=== PATIENT | male | born 1965 | race Caucasian/White ===

== ENCOUNTER 2021-11-13 08:52 | Emergency (ER) | payer MEDICAID ==
[~2021-11-13] VITALS: Ht 177.8 cm; Wt 51.3 kg
--- NOTE | 2021-11-13 08:57 | NUR ---
TO ER BED 6, [id number] C/O SOB 92% RA PER EMS REPORT, WAS JUST DISCHARGED FROM [facility] 2DAYS AGO, CONNECTED ON OXYGEN 5LPM SATTING AT 97-100%, AAOX3, CONNECTED TO MONITOR, AWAITING MD ORDERS
[2021-11-13] MEDS ORDERED: methylPREDNISolone SOD SUCC 125 MG/2ML VIAL ONE (09:17)
--- NOTE | 2021-11-13 09:26 | NUR ---
FRAME MAKER AT BEDSIDE FOR XRAY
[2021-11-13] MEDS ORDERED: ALBUTEROL FS 2.5 MG/0.5 ML VIAL.NEB ONE (09:28)
[2021-11-13] MEDS ORDERED: IPRATROPIUM NEB FS 0.5 MG/2.5 ML AMPUL.NEB ONE (09:28)
[2021-11-13] MEDS ORDERED: IPRATROPIUM NEB FS 0.5 MG/2.5 ML AMPUL.NEB NEB ONE (09:30)
[2021-11-13] MEDS ORDERED: ALBUTEROL FS 2.5 MG/3 ML VIAL.NEB CONTNEB ONE (09:30)
[2021-11-13] MEDS ORDERED: methylPREDNISolone SOD SUCC 125 MG/2ML VIAL IV ONE (09:30)
[2021-11-13 09:48] LABS: CALCIUM, SERUM 8.5 mg/dL (8.5-10.1); CREATININE 0.9 mg/dL (0.6-1.3); POTASSIUM 3.8 mmol/L (3.5-5.1)
[2021-11-13 09:52] LABS: BASOPHILS % (AUTO) 0.1 % (0.0-2.0); EOSINOPHILS % (AUTO) 0.8 % (0.0-6.0); HEMATOCRIT 40 % (39-51); HEMOGLOBIN 13.3 g/dL (13.5-17.5); LYMPHOCYTES # (AUTO) 0.7 K/uL (0.8-4.8); LYMPHOCYTES % (AUTO) 15.5 % (20.0-44.0); MEAN CORPUSCULAR HGB CONC 34 g/dl (31.0-36.0); MEAN CORPUSCULAR VOLUME 91 fL (80-96); MONOCYTES # (AUTO) 0.3 K/uL (0.1-1.30); MONOCYTES % (AUTO) 7.6 % (2.0-12.0); NEUTROPHILS # (AUTO) 3.3 K/uL (1.8-8.9); PLATELET COUNT (AUTO) 169 K/uL (150-450); RED BLOOD CELL COUNT(AUTO) 4.36 MIL/uL (4.5-6.0); WHITE BLOOD COUNT (AUTO) 4.3 K/uL (4.3-11.0)
[2021-11-13] MEDS ORDERED: TIOT18CA3 INH (10:15)
[2021-11-13] MEDS ORDERED: DOXY-326 PO (10:15)
[2021-11-13] MEDS ORDERED: ALBU8.5H8 INH (10:15)
[2021-11-13] MEDS ORDERED: PRED50TA PO (10:15)
--- NOTE | 2021-11-13 10:26 | NUR ---
IV removed. Catheter intact and site benign. Pressure and 4x4 applied to site. No bleeding noted.Patient discharged to home in stable condition. Written and verbal after care instructions given. Patient verbalizes understanding of instruction.
[2021-11-13 10:35] VITALS: BP 144/88
[2021-11-14] MEDS ORDERED: BUPR-319 PO (09:11)
[2021-11-14] MEDS ORDERED: NICO-762 TP (09:11)
[2021-11-14] MEDS ORDERED: LORA10TA7 PO (09:11)
[2021-11-14] MEDS ORDERED: FLUT1DIS3 INH (09:11)
[2021-11-14] MEDS ORDERED: OMEP40CA21 PO (09:11)
[2021-11-14] MEDS ORDERED: LIDO30AD10 TP (09:12)
[2021-11-14] MEDS ORDERED: ACET-868 PO (09:15)
[2021-11-14] MEDS ORDERED: IPRATROPIUM NEB FS 0.5 MG/2.5 ML AMPUL.NEB ONE (14:15)
[2021-11-14] MEDS ORDERED: ALBUTEROL FS 2.5 MG/3 ML VIAL.NEB ONE (14:15)
== END 2021-11-13 10:35 | disposition home or self-care (01) ==
LOC: ER 08:55
DX: J44.1 Chronic obstructive pulmonary disease with (acute) exacerbation (principal)
CPT/HCPCS: 36415; 71045; 80048; 85025; 93005; 94640; 94760; 94799; 96374; 99285; J2930

== ENCOUNTER 2021-11-14 09:03 | Inpatient (IN) | payer MEDICAID ==
[~2021-11-14] VITALS: Ht 177.8 cm; Wt 49.4 kg
[~2021-11-14 09:03] MED LIST: ALBU8.5H8 INH; DOXY-326 PO; PRED50TA PO; TIOT18CA3 INH
--- NOTE | 2021-11-14 09:08 | NUR ---
GUANAKO FROM [facility] C/O SOB, PT WAS HERE YESTEDAY AND DISCHARGED FOR THE SAME REASON. ATTCHED TO MONITOR OXYGEN SATURATION AT 94% ON 2L NC. AWAITING MD HOLGUIN.
[2021-11-14] MEDS ORDERED: OMEP40CA21 PO (09:11)
[2021-11-14] MEDS ORDERED: LORA10TA7 PO (09:11)
[2021-11-14] MEDS ORDERED: NICO-762 TP (09:11)
[2021-11-14] MEDS ORDERED: FLUT1DIS3 INH (09:11)
[2021-11-14] MEDS ORDERED: BUPR-319 PO (09:11)
[2021-11-14] MEDS ORDERED: LIDO30AD10 TP (09:12)
--- NOTE | 2021-11-14 09:13 | NUR ---
security at bedside for wanding.
[2021-11-14] MEDS ORDERED: ACET-868 PO (09:15)
--- NOTE | 2021-11-14 09:23 | NUR ---
X RAY AT BEDSIDE
[2021-11-14] MEDS ORDERED: IPRATROPIUM NEB FS 0.5 MG/2.5 ML AMPUL.NEB NEB ONE (09:30)
[2021-11-14] MEDS ORDERED: predniSONE 20 MG TABLET PO ONE (09:30)
[2021-11-14] MEDS ORDERED: ALBUTEROL FS 2.5 MG/3 ML VIAL.NEB CONTNEB ONE (09:30)
[2021-11-14] MEDS ORDERED: predniSONE 20 MG TABLET ONE (09:34)
--- NOTE | 2021-11-14 09:38 | NUR ---
RT AT BEDSIDE
[2021-11-14] MEDS ORDERED: ALBUTEROL FS 2.5 MG/0.5 ML VIAL.NEB ONE ×2 (09:42→17:49)
[2021-11-14] MEDS ORDERED: ALBUTEROL FS 2.5 MG/3 ML VIAL.NEB ONE ×2 (09:42→19:44)
[2021-11-14] MEDS ORDERED: IPRATROPIUM NEB FS 0.5 MG/2.5 ML AMPUL.NEB ONE ×2 (09:42→19:44)
--- NOTE | 2021-11-14 09:58 | NUR ---
COVID TEST COLLECTED AND SENT
[2021-11-14 10:03] LABS: BASOPHILS % (AUTO) 0.1 % (0.0-2.0); EOSINOPHILS % (AUTO) 0.1 % (0.0-6.0); HEMATOCRIT 39 % (39-51); HEMOGLOBIN 13.4 g/dL (13.5-17.5); LYMPHOCYTES # (AUTO) 0.6 K/uL (0.8-4.8); MEAN CORPUSCULAR HGB CONC 34 g/dl (31.0-36.0); MEAN CORPUSCULAR VOLUME 90 fL (80-96); MONOCYTES # (AUTO) 0.3 K/uL (0.1-1.30); MONOCYTES % (AUTO) 3.8 % (2.0-12.0); NEUTROPHILS # (AUTO) 7.1 K/uL (1.8-8.9); PLATELET COUNT (AUTO) 215 K/uL (150-450); RED BLOOD CELL COUNT(AUTO) 4.35 MIL/uL (4.5-6.0)
[2021-11-14 10:14] LABS: CALCIUM, SERUM 8.8 mg/dL (8.5-10.1); CARBON DIOXIDE 33 mmol/L (21-32); CHLORIDE 99 mmol/L (98-107); CREATININE 0.9 mg/dL (0.6-1.3); GLUCOSE 114 mg/dL (74-106); POTASSIUM 3.4 mmol/L (3.5-5.1); SODIUM SERUM 136 mmol/L (136-145); UREA NITROGEN, BLOOD 16 mg/dL (7-18)
[2021-11-14 10:28] LABS: ALANINE AMINOTRANSFERASE 53 U/L (12-78); ALBUMIN 2.9 g/dL (3.4-5.0); ALKALINE PHOSPHATASE 79 U/L (46-116); ASPARTATE AMINOTRANSFERASE 43 U/L (15-37); BILIRUBIN,TOTAL 0.3 mg/dL (0.2-1.0); TOTAL PROTEIN, SERUM 6.5 g/dL (6.4-8.2)
[2021-11-14] MEDS ORDERED: LIDOCAINE 5% (PATCH) 1 EA PATCH TP PRN (11:00)
[2021-11-14] MEDS ORDERED: CEFTRIAXONE 1GM BAG (ER ONLY) 1 GM/50 ML PIGGYBACK IV ONE (11:00)
[2021-11-14] MEDS ORDERED: hydrALAZINE HCL IV 20 MG VIAL IV PRN (11:00)
[2021-11-14] MEDS ORDERED: ACETAMINOPHEN 325 MG TABLET PO PRN (11:00)
[2021-11-14] MEDS ORDERED: ALBUTEROL FS 2.5 MG/0.5 ML VIAL.NEB NEB PRN (11:00)
[2021-11-14] MEDS ORDERED: AZITHROMYCIN 500 MG in IV D5W 250 ML IV ONE (11:00)
[2021-11-14] MEDS ORDERED: ONDANSETRON HCL/PF 4 MG/2 ML VIAL IVP PRN (11:00)
[2021-11-14] MEDS ORDERED: MORPHINE SULFATE INJ 2 MG/ML DISP.SYRIN IV PRN (11:00)
[2021-11-14] MEDS ORDERED: LORATADINE 10 MG TABLET PO PRN (11:00)
--- NOTE | 2021-11-14 11:00 | NUR ---
CALLED NURSING SUP REGARDING PT BED
[2021-11-14] MEDS: IV NS 0.9% 1,000 ML IV SCH (11:03)
[2021-11-14] MEDS: NICOTINE PATCH (21MG) 21 MG PATCH.TD24 TD SCH (11:03)
[2021-11-14] MEDS ORDERED: CEFTRIAXONE 1GM BAG (ER ONLY) 50 ML IV ONE (11:07)
--- NOTE | 2021-11-14 12:03 | NUR ---
PT PROVIDED W/ LUNCH. SISTER AT BEDSIDE HELPING PT.
--- NOTE | 2021-11-14 12:45 | NUR ---
REMOVED IV LINE ON RAC PATIENT IS COMPLAINING OF PAIN.
--- NOTE | 2021-11-14 13:01 | NUR ---
SISTER JORDEN [phone]
--- NOTE | 2021-11-14 14:15 | NUR ---
RT AT BEDSIDE FOR BREATHING TX
[2021-11-14] MEDS: ALBUTEROL FS 2.5 MG/3 ML VIAL.NEB NEB SCH ×2 (14:21→20:00)
[2021-11-14] MEDS: IPRATROPIUM NEB FS 0.5 MG/2.5 ML AMPUL.NEB NEB SCH ×2 (14:21→20:00)
--- NOTE | 2021-11-14 16:31 | NUR ---
PT TAKEN TO RADIOLOGY
--- NOTE | 2021-11-14 16:58 | NUR ---
HOME CARE CONSULTANT AT BEDSIDE FOR ECHO
[2021-11-14] MEDS: DOCUSATE SODIUM LIQ 100 MG/10 ML UDC PO SCH (16:59)
[2021-11-14] MEDS ORDERED: DOCUSATE SODIUM LIQ 100 MG/10 ML UDC ONE (16:59)
--- NOTE | 2021-11-14 18:00 | NUR ---
RT AT BEDSIDE FOR PRN BREATHING TX
--- NOTE | 2021-11-14 19:51 | NUR ---
PT EATING DINNER; PT TOLERATED WELL
--- NOTE | 2021-11-14 20:10 | NUR ---
RT AT BEDSIDE FOR BREATHING TX
[2021-11-14] MEDS ORDERED: HEPARIN SODIUM, PORCINE 5000 UNITS/1 ML VIAL ONE (20:51)
[2021-11-14] MEDS: HEPARIN SODIUM, PORCINE 5000 UNITS/1 ML VIAL SQ SCH (21:14)
--- NOTE | 2021-11-14 21:44 | NUR ---
TELE 112-1
--- NOTE | 2021-11-14 22:34 | NUR ---
Report given to Sofia Canseco RN For BRYCE
[2021-11-14 22:48] VITALS: BP 132/82
--- NOTE | 2021-11-14 22:48 | NUR ---
RESEARCH ASSISTANT MEMBER NOTES, RECEIVED 55 YO MALE ADMITTED FROM ER DEPARTMENT VIA STRETCHER ACCOMPANIED BY NURSE, ADMIRING UNDER MEDICAL SERVICES OF DR SOFIA, WITH ADMITTING DX PNA, PATIENT A/OX4 ABLE TO VERBALIZE NEEDS AN CONCERNS, NO SOB/ACUTE DISTRESS NOTED UPON ADMISSION, ON 4LPM VIA NC, WITH OPTIMAL O2 SAT LEVEL, ATTACHED TO TELE MONITOR AND SHOWS NSR WITH HR 70S AT THIS TIME, PATIENT, AFEBRILE, PERIPHERAL IV SITE IN LEFT HAND 20G, PATENT AND INTACT, NS 0.9% INFUSING AT 75CC/L, NO S/S OF INFILTRATION NOTED, SACRAL/PERINEAL REDNESS NOTED, WOUND CONSULT TO FOLLOW UP, BED LOCKED AND IN LOWEST POSITION, S/R OF BED X3 UP, CALL LIGHT W/I REACH, WILL CONTINUE TO MONITOR CLOSELY.
--- NOTE | 2021-11-14 22:50 | NUR ---
PT TRANSFERRED TO [facility] VIA [facility]S PROTOCOL. VSS. ALL BELONGINGS WITH PT.
--- NOTE | 2021-11-14 22:51 | NUR ---
UPDATED JORDEN (SISTER) [phone] THAT PT TRANSFERRED TO [facility]
[2021-11-15] VITALS: BP 128/70
[2021-11-15] MEDS: IV NS 0.9% 1,000 ML IV SCH (00:31)
[2021-11-15] MEDS: IPRATROPIUM NEB FS 0.5 MG/2.5 ML AMPUL.NEB NEB SCH ×2 (02:17→08:05)
[2021-11-15] MEDS: ALBUTEROL FS 2.5 MG/3 ML VIAL.NEB NEB SCH ×2 (02:17→08:06)
[2021-11-15 04:00] VITALS: BP 136/85
[2021-11-15] MEDS ORDERED: CEFEPIME 2 GM in IV D5W 100 ML IV SCH (05:00)
--- NOTE | 2021-11-15 06:41 | NUR ---
RN CLOSING NOTES, PATIENT SLEEPING AT THIS TIME, NO SOB/ACUTE DISTRESS NOTED UPON ADMISSION, ON 2LPM VIA NC, WITH OPTIMAL O2 SAT LEVEL, NSR WITH HR 60-80S THROUGHOUT THE NIGHT, ALL NEEDS PROVIDED, ALL MEDS DUE ADMINISTERED, NO SIGNIFICANT CHANGE IN CONDITION DURING THE NIGHT, BED LOCKED AND IN LOWEST POSITION, S/R OF BED X3 UP, CALL LIGHT W/I REACH, WILL ENDORSE CONTINUITY OF CARE TO ONCOMING NURSE.
[2021-11-15 06:50] LABS: BASOPHILS % (AUTO) 0.1 % (0.0-2.0); EOSINOPHILS % (AUTO) 0.1 % (0.0-6.0); HEMATOCRIT 34 % (39-51); HEMOGLOBIN 11.5 g/dL (13.5-17.5); LYMPHOCYTES # (AUTO) 0.7 K/uL (0.8-4.8); LYMPHOCYTES % (AUTO) 10.8 % (20.0-44.0); MEAN CORPUSCULAR HGB CONC 34 g/dl (31.0-36.0); MEAN CORPUSCULAR VOLUME 89 fL (80-96); MONOCYTES # (AUTO) 0.4 K/uL (0.1-1.30); MONOCYTES % (AUTO) 5.6 % (2.0-12.0); NEUTROPHILS # (AUTO) 5.7 K/uL (1.8-8.9); NEUTROPHILS % (AUTO) 83.4 % (43.0-81.0); PLATELET COUNT (AUTO) 221 K/uL (150-450); RED BLOOD CELL COUNT(AUTO) 3.79 MIL/uL (4.5-6.0); WHITE BLOOD COUNT (AUTO) 6.8 K/uL (4.3-11.0)
--- NOTE | 2021-11-15 07:27 | NUR ---
RN NOTES PT FOUND SEMI FOWLERS , APPEARS TO BE SLEEPING, DISPLAYING NO S/S OF DISTRESS, FLACC = 0 AND BREATHING IS EVEN AND UNLABORED ON 2L O2 NC. L HAND 20G IS PATIENT AND INTACT. RN WILL CONTINUE CARE PLAN AND ANTICIPATE NEEDS. SAFETY MEASURES IN PLACE, BED LOCKED AND IN LOWEST POSITION, SIDE RAILS UPX2, CALL LIGHT WITHIN REACH, BED ALARM ARMED.
[2021-11-15 07:29] LABS: ALBUMIN 2.5 g/dL (3.4-5.0); BILIRUBIN,TOTAL 0.2 mg/dL (0.2-1.0); CALCIUM, SERUM 8.1 mg/dL (8.5-10.1); CREATININE 0.8 mg/dL (0.6-1.3); MAGNESIUM 1.8 mg/dL (1.8-2.4); PHOSPHORUS 2.4 mg/dL (2.5-4.9); POTASSIUM 3.3 mmol/L (3.5-5.1); TOTAL PROTEIN, SERUM 5.6 g/dL (6.4-8.2)
[2021-11-15] MEDS ORDERED: PANTOPRAZOLE 40 MG TABLET.DR PO SCH (07:30)
[2021-11-15 08:00] VITALS: BP 158/78
[2021-11-15] MEDS: NICOTINE PATCH (21MG) 21 MG PATCH.TD24 TD SCH (08:24)
[2021-11-15] MEDS: DOCUSATE SODIUM LIQ 100 MG/10 ML UDC PO SCH (08:24)
[2021-11-15] MEDS: HEPARIN SODIUM, PORCINE 5000 UNITS/1 ML VIAL SQ SCH (08:25)
[2021-11-15] MEDS ORDERED: BUPROPION XL 150 MG TAB.ER.24 PO SCH (09:00)
[2021-11-15] MEDS ORDERED: POLYETHYLENE GLYCOL 3350 17 GM POWD.PACK PO SCH (09:00)
--- NOTE | 2021-11-15 09:18 | NUR ---
RN NOTE PT WANTS TO LEAVE AMA, PT VERBALIZES "YOU ARE NOT DOING ANYTHING". RN PROVIDED PT WITH AMA FORM. PT REFUSES STATING, "NONE OF THIS APPLIES TO ME". MUNIRA DONALD IS CALLING FAMILY FOR PATIENT TASSEL SNIPPER.
--- NOTE | 2021-11-15 09:20 | NUR ---
RN NOTE MUNIRA DONALD JUST NOTIFIED RN THAT PT SIGNED AMA FORM.
--- NOTE | 2021-11-15 09:23 | NUR ---
patient walks to nurses station using F WORDS AND DEMANDED TO LEAVE. explained the risk of leaving AMA including pt. still insisted to leave.signed AMA.daughter patrice made aware .will leaf size picker pt.autumn bird np and made aware. nursing sup made aware.
--- NOTE | 2021-11-15 09:39 | NUR ---
addendum to early notes sister JORDEN renotified patient left ambulatory,refused to wait for sister.
--- NOTE | 2021-11-15 09:55 | NUR ---
sister STEPHANIA CAME informed pt. signed AMA,gave the chart from manjula lizama per CHASITY REQUEST,per Stephania she will give it to Chasity.
[2021-11-15] MEDS ORDERED: K PHOS NEUTRAL 250 MG TABLET PO ONE (11:00)
[2021-11-15] MEDS ORDERED: POTASSIUM CHLORIDE 20 MEQ TAB.PRT.SR PO SCH (11:00)
[2021-11-15 14:58] LABS: LYMPHOCYTES % (MANUAL) 14 % (16-48); MONOCYTES % (MANUAL) 6 % (0-11.0); NEUTROPHILS % (MANUAL) 80 (42-76)
== END 2021-11-15 09:47 | disposition left against medical advice (07) | DRG 137 ==
LOC: ER 09:07 → TRANSITION 10:49 → MEDSG1 21:46 → TELE1 11-15
PROVIDERS: ADMIT Internal Medicine; ATTEND Nurse Practitioner Acute Care
DX: J15.6 Pneumonia due to other Gram-negative bacteria (principal); J96.01 Acute respiratory failure with hypoxia; E44.0 Moderate protein-calorie malnutrition; R64 Cachexia; E88.09 Other disorders of plasma-protein metabolism, not elsewhere classified; Z79.51 Long term (current) use of inhaled steroids; Z68.1 Body mass index [BMI] 19.9 or less, adult; Z99.81 Dependence on supplemental oxygen; F17.210 Nicotine dependence, cigarettes, uncomplicated; Z71.6 Tobacco abuse counseling; E87.6 Hypokalemia; J44.1 Chronic obstructive pulmonary disease with (acute) exacerbation; J44.0 Chronic obstructive pulmonary disease with (acute) lower respiratory infection; Z20.822 Contact with and (suspected) exposure to COVID-19
CPT/HCPCS: 36415; 71045-TC; 71250-TC; 80048-TC; 80053-TC; 80076-TC; 83735-TC; 83880; 84100-TC; 84484-TC; 85025-TC; 87081-TC; 93307-TC; 94799-TC; C9803; G0378; J0456; J0692; J0696; J1644; J7030; J7060